=== PATIENT | female | born 1990 | race Caucasian/White ===

== ENCOUNTER → 2023-11-20 09:48 | Outpatient (REF) | payer OTHER, SELFPAY | LOC: HWRAD 09:48 | PROVIDERS: ATTENDING PHYSICIAN Registered Nurse; FAMILY PHYSICIAN Physician Assistant Medical | DX: R10.9 Unspecified abdominal pain (principal) | CPT/HCPCS: 74177; Q9967 ==

== ENCOUNTER → 2024-01-29 06:25 | Day surgery (SDC) | payer OTHER, SELFPAY | LOC: GI 06:25 | PROVIDERS: ATTENDING PHYSICIAN Internal Medicine | DX: R93.3 Abnormal findings on diagnostic imaging of other parts of digestive tract (principal); K50.10 Crohn's disease of large intestine without complications; K52.9 Noninfective gastroenteritis and colitis, unspecified; R10.84 Generalized abdominal pain; K44.9 Diaphragmatic hernia without obstruction or gangrene; K29.50 Unspecified chronic gastritis without bleeding | CPT/HCPCS: 45380; 43239; 88305; 88342 ==

== ENCOUNTER → 2024-02-26 07:55 | Outpatient (REF) | payer OTHER, SELFPAY | LOC: HWRAD 07:55 | PROVIDERS: ATTENDING PHYSICIAN Internal Medicine; FAMILY PHYSICIAN Student in an Organized Health Care Education/Training Program | DX: K50.10 Crohn's disease of large intestine without complications (principal); R74.8 Abnormal levels of other serum enzymes | CPT/HCPCS: 76700; 93975 ==

== ENCOUNTER → 2024-03-05 07:35 | Outpatient (REF) | payer OTHER, SELFPAY | LOC: MRI 07:35 | PROVIDERS: ATTENDING PHYSICIAN Internal Medicine; FAMILY PHYSICIAN Family Medicine | DX: K83.8 Other specified diseases of biliary tract (principal); R93.89 Abnormal findings on diagnostic imaging of other specified body structures; R74.8 Abnormal levels of other serum enzymes | CPT/HCPCS: 74183; A9575 ==